=== PATIENT | female | born 1955 | race Caucasian/White ===

== ENCOUNTER → 2017-10-02 15:26 | Outpatient (CLI) | payer OTHER, SELFPAY ==
--- NOTE | 2017-10-02 15:34 | RAD_ITS ---
STUDY: X-RAY - LEFT WRIST REASON FOR EXAM: Female, 62 years old. Fracture TECHNIQUE: 3 view(s) of the wrist were obtained. COMPARISON: 08/28/2017 FINDINGS: Healing distal radius fracture. Normal radiocarpal articulation. Normal distal radioulnar articulation. Normal carpal bones. Normal carpal articulations. Normal carpometacarpal articulation of the thumb. Normal second through fifth carpometacarpal articulations. Normal visualized metacarpal bones. The soft tissue structures are unremarkable. RAD/Wrist min 3 Views IMPRESSION: Healing distal radius fracture. No new osseous abnormality is evident. Electronically Signed: Corbin Victoria MD at 0:48 EST Tel , Service support ,
== END ==
PROVIDERS: Visit Provider Orthopaedic Surgery
DX: S52.55 Other extraarticular fracture of lower end of radius (principal)
CPT/HCPCS: 73110